=== PATIENT | male | born 2000 | race Caucasian/White ===

== ENCOUNTER 2022-06-18 14:51 | Emergency (ER) | payer OTHER ==
[2022-06-18 15:00] VITALS: BP 129/74; TEMP 98; BMI 29.8
[2022-06-18] MEDS ORDERED: LIDOCAINE HCL 1%, 10 MG/ML (20ML VIAL) ONE (16:27)
[2022-06-18] MEDS ORDERED: LIDOCAINE HCL 1%, 10 MG/ML (50 mL VIAL) SQ ONE (16:27)
[2022-06-18 17:04] VITALS: PULSE 93; RESP 18
== END 2022-06-18 17:05 | disposition home or self-care (01) ==
LOC: FER 14:51
PROC: 0HQFXZZ Repair Right Hand Skin, External Approach (ICD-10-PCS; principal; 2022-06-18)
DX: S61.411A Laceration without foreign body of right hand, initial encounter (principal); W22.8XXA Striking against or struck by other objects, initial encounter; W25.XXXA Contact with sharp glass, initial encounter
CPT/HCPCS: 73130-TC-LT-FY; 73130-TC-RT-FY; 99284-25